=== PATIENT | female | born 1975 | race Caucasian/White ===

== ENCOUNTER 2023-03-05 20:48 | Emergency (ER) | payer OTHER ==
[~2023-03-05] VITALS: Ht 157.5 cm; Wt 68.0 kg
[2023-03-05 21:04] VITALS: BP 127/100
== END 2023-03-06 00:34 | disposition home or self-care (01) ==
LOC: ER 20:48
DX: T18.128A Food in esophagus causing other injury, initial encounter (principal); W44.F3XA Food entering into or through a natural orifice, initial encounter
CPT/HCPCS: 96372; 99283-25; J1610

== ENCOUNTER 2024-07-07 09:51 | Emergency (ER) | payer OTHER ==
[~2024-07-07] VITALS: Ht 157.5 cm; Wt 68.0 kg
[2024-07-07] MEDS ORDERED: Glucagon, Human Recombinant 1 MG/Vial IV ONE (10:05)
[2024-07-07] MEDS ORDERED: LORazepam 2 MG/ML 1ML Injection IV ONE (10:05)
[2024-07-07] MEDS ORDERED: Lactated Ringer's 1,000 ML IV ONE (10:05)
[2024-07-07 10:43] LABS: BASOPHILS ABSOLUTE AUTO 0.07 K/mm3 (0.00-0.23); BASOPHILS PERCENT AUTO 1 % (0-2); EOSINOPHILS ABSOLUTE AUTO 0.17 K/mm3 (0.00-0.68); EOSINOPHILS PERCENT AUTO 2 % (0-6); Hematocrit 40.7 % (33.0-51.0); Hemoglobin 14.1 g/dL (11.5-16.0); IMMATURE GRAN ABSOLUTE AUTO 0.01 K/mm3 (0.00-0.10); IMMATURE GRAN PERCENT AUTO 0 % (0-1); LYMPHOCYTES ABSOLUTE AUTO 2.29 K/mm3 (0.84-5.20); LYMPHOCYTES PERCENT AUTO 32 % (21-46); MONOCYTES ABSOLUTE AUTO 0.48 K/mm3 (0.16-1.47); MONOCYTES PERCENT AUTO 7 % (4-13); Mean Corpuscular HGB 32.7 pg (26.0-34.0); Mean Corpuscular HGB Conc 34.6 g/dL (31.5-36.5); Mean Corpuscular Volume 94 fL (80-100); Mean Platelet Volume 9.9 fL (9.1-12.4); NEUTROPHILS ABSOLUTE AUTO 4.18 K/mm3 (1.96-9.15); NEUTROPHILS PERCENT AUTO 58 % (41-73); Platelet Count 283 K/mm3 (150-400); RDW Standard Deviation 41.8 fL (35.1-46.3); Red Blood Cell Count 4.31 M/mm3 (3.80-5.20)
[2024-07-07 11:08] LABS: Albumin, Blood 4.2 g/dL (3.4-5.0); Albumin/Globulin Ratio 1.1 (0.8-1.8); Bilirubin, Total 0.9 mg/dL (0.1-1.0); Bun/Creatinine Ratio 15.5 (12.0-20.0); Calcium, Blood 9.2 mg/dL (8.5-10.1); Creatinine, Blood 0.71 mg/dL (0.40-1.00); Globulin, Blood 3.8 g/dL (2.2-4.0); Potassium, Blood 3.9 mmol/L (3.5-5.5)
[2024-07-07 12:15] VITALS: BP 103/81
== END 2024-07-07 12:23 | disposition home or self-care (01) ==
LOC: ER 09:51
PROVIDERS: Emergency Medicine
DX: T18.128A Food in esophagus causing other injury, initial encounter (principal)
CPT/HCPCS: 80053; 85025; 96374; 96375; 99283-25; J1610; J2060; J7120

== ENCOUNTER → 2025-03-09 | Outpatient (CLI) | payer OTHER | LOC: LAB SHORT 16:15 → LAB 16:15 | DX: N39.0 Urinary tract infection, site not specified (principal) | CPT/HCPCS: 87086 ==

== ENCOUNTER → 2025-03-18 | Outpatient (CLI) | payer OTHER | LOC: LAB 15:38 → LAB SHORT 15:38 | DX: R30.0 Dysuria (principal) | CPT/HCPCS: 87086 ==